=== PATIENT | female | born 1965 ===

== ENCOUNTER 2016-10-21 06:17 | Day surgery (SDC) | payer BC ==
[~2016-10-21] VITALS: Ht 160 cm; Wt 59.0 kg
[2016-10-21] VITALS (13 sets, daily range): BP systolic 104–139; BP diastolic 60–84
[~2016-10-21 06:17] MED LIST: NKM; ceFAZolin 1gm in D5W 55ml IVP ONE; celeBREX 200mg Cap **SURGERY PATIENTS ONLY ORAL ONE; oxyCONTIN 20mg tab ORAL ONE
--- NOTE | 2016-10-21 07:55 | Pre-Procedure Note/Attestation ---
Pre-Procedure Note/Attestation Complete Prior to Procedure Planned Procedure: right Procedure Narrative: knee arthroscopy acl reconstrution Indications for Procedure Pre-Operative Diagnosis: right knee acl tear Attestation I attest that I discussed the nature of the procedure; its benefits; risks and complications; and alternatives (and the risks and benefits of such alternatives ), prior to the procedure, with the patient (or the patient's legal parts sales representative). I attest that, if there was a reasonable possibility of needing a blood transfusion, the patient (or the patient's legal parts sales representative) was given the [facility] standardized written summary, pursuant to the [place] Blood Safety Act ([place] Health and Safety Code # 1645, as amended). I attest that I re-evaluated the patient just prior to the surgery and that there has been no change in the patient's H&P, except as documented below: DEWEY LYNN Oct 21, 2016 07:55
--- NOTE | 2016-10-21 07:56 | Operative Note - PDOC ---
Operative Note Operative Note Pre-op Diagnosis: right knee acl tear Procedure: see op report Post-op Diagnosis: same as pre-op plus Operative Findings: consistent w/pre-op dx studies Anesthesia: regional Specimen: none Complications: none Condition: stable Estimated Blood Loss: none Implant(s) used?: Yes DEWEY LYNN Oct 21, 2016 07:56
[2016-10-21] MEDS ORDERED: Tylenol #3 tab (300mg/30mg) ORAL PRN (08:00)
[2016-10-21] MEDS ORDERED: HYDROmorphone 1mg/ml Carpuject SUBQ PRN (08:00)
[2016-10-21] MEDS ORDERED: Norco 5mg/325mg tab ORAL PRN (08:00)
[2016-10-21] MEDS ORDERED: D5 1/2NS 1,000 ML IV SCH (08:00)
[2016-10-21] MEDS ORDERED: Morphine Sulfate PF 0 ML ONE (10:53)
[2016-10-21] MEDS ORDERED: Bupivacaine w/Epi 0.25% 30ml Vial INJ ONE (10:54)
[2016-10-21] MEDS ORDERED: Bupivacaine 0.25% Inj 30ml INJ ONE (10:54)
[2016-10-21] MEDS ORDERED: EPINEPHrine 1mg/1ml Amp ONE (10:54)
[2016-10-21] MEDS ORDERED: Bacitracin 50000 Units Vial ONE (10:54)
[2016-10-21] MEDS ORDERED: Lidocaine 1% 10mg/ml/Epi 0.005mg/ml 30ml vial INJ ONE (10:54)
[2016-10-21] MEDS ORDERED: Ketorolac 30mg Inj ONE ×2 (10:54→11:15)
[2016-10-21] MEDS ORDERED: Kenalog-40 1ml Vial ONE (10:54)
[2016-10-21] MEDS ORDERED: Metoclopramide 10mg/2ml Inj ONE (11:15)
[2016-10-21] MEDS ORDERED: LR 1000ml ONE (11:15)
[2016-10-21] MEDS ORDERED: NS Irrig 1000ml ONE (11:15)
[2016-10-21] MEDS ORDERED: Sterile Water Irrig 1000ml IRRIG ONE (11:15)
[2016-10-21] MEDS ORDERED: Midazolam 2mg/2ml Inj ONE (11:15)
[2016-10-21] MEDS ORDERED: Propofol 10mg/ml 20ml IV ONE (11:15)
[2016-10-21] MEDS ORDERED: fentaNYL 100 mcg/2 mL IV ONE (11:15)
--- NOTE | 2016-10-21 12:26 | Anethesia Preoperative Eval ---
Anesthesia Pre-op PMH/ROS General Date of Evaluation: Oct 21, 2016 Time of Evaluation: 11:30 Anesthesiologist: chato ASA Score: ASA 1 Mallampati Score Class I : Soft palate, uvula, fauces, pillars visible Class II: Soft palate, uvula, fauces visible Class III: Soft palate, base of uvula visible Class IV: Only hard plate visible Surgeon: jordon Diagnosis: ACL Tear right knee Surgical Procedure: ACL repair Anesthesia History: none Family History: no anesthesia problems Allergies: Coded Allergies: No Known Allergies (Unverified , 10/20/16) Medications: see eMAR Past Medical History Cardiovascular: Denies: CAD, HTN, OR, arrhythmia, other, valve dz Pulmonary: Denies: COPD, BRITTNEE, asthma, other Gastrointestinal/Genitourinary: Denies: CRI, ESRD, GERD, other Neurologic/Psychiatric: Denies: CVA, TIA, dementia, depression/anxiety, other Endocrine: Denies: DM, hypothyroidism, other, steroids HEENT: Denies: FALSE PASS (L), FALSE PASS (R), cataract (L), cataract (R), glaucoma, other Hematology/Immune: Denies: DVT, anemia, bleeding disorder, other Musculoskeletal/Integumentary: Denies: DDD, DJD, OA, RA, edema, other PSxH Narrative: cyst removal Anesthesia Pre-op Phys. Exam Physician Exam Last Vital Signs Date Time Temp Pulse Resp B/P Pulse Ox O2 Delivery O2 Flow Rate FiO2 10/21/16 07:15 97.5 62 20 126/77 99 Room Air Constitutional: NAD Neurologic: CN 2-12 intact Cardiovascular: RRR Respiratory: CTA Gastrointestinal: S/NT/ND Airway Exam Mallampati Classification 2 Mallampati Score: Class II MO: full ROM: full Dentures: no lower, no upper Anesthesia Pre-op A/P Labs Urine Test pt refuses pregn testing; LMP - 09/22/16, Explained to patient regarding risks of general anesthesia and , pt accepts all risks and wishes to proceed. Surgical team aware. Studies Pre-op Studies: EKG - sr Risk Assessment & Plan Plan: general / adductor canal block Status Change Before Surgery: No Pre-Antibiotics Drug: ancef Given Within 1 Hr of Incision: Yes Time Given: 11:45 DAYRON DELGADILLO CRNA Oct 21, 2016 12:25
[2016-10-21] MEDS ORDERED: Metoclopramide 10mg/2ml Inj IVP PRN (12:30)
[2016-10-21] MEDS ORDERED: Hydromorphone 0.5mg/0.5ml inj IVP PRN (12:30)
[2016-10-21] MEDS ORDERED: Meperidine 25mg/0.5ml Inj IV PRN (12:30)
--- NOTE | 2016-10-21 13:40 | Immediate Post-Op Evaluation ---
Immediate Post-Op Evalulation Immediate Post-Op Evalulation Procedure: ACL Repair Date of Evaluation: Oct 21, 2016 Time of Evaluation: 13:25 IV Fluids: 800 Blood Pressure Systolic: 137 Blood Pressure Diastolic: 100 Pulse Rate: 68 Respiratory Rate: 14 O2 Sat by Pulse Oximetry: 100 Temperature (Fahrenheit): 97.3 Nausea: No Vomiting: No Complications none Patient Status: awake, reacts, patent Hydration Status: adequate Drug: ancef Given Within 1 Hr of Incision: Yes Time Given: 11:45 DAYRON DELGADILLO CRNA Oct 21, 2016 13:40
[2016-10-21] MEDS: fentaNYL 100 mcg/2 mL IV PRN ×2 (13:46→14:15)
--- NOTE | 2016-10-21 13:55 | 48 Hour Post Anesthesia Eval ---
Post Anesthesia Evaluation Procedure: ACL Repair Date of Evaluation: Oct 21, 2016 Time of Evaluation: 13:55 Blood Pressure Systolic: 137 0: 67 Pulse Rate: 70 Respiratory Rate: 14 O2 Sat by Pulse Oximetry: 99 Airway: patent Nausea: No Vomiting: No Hydration Status: adequate Mental Status/LOC: patient returned to baseline Post-Anesthesia Complications: none Follow-up care needed: N/A DAYRON DELGADILLO CRNA Oct 21, 2016 13:55
--- NOTE | 2016-10-21 19:15 | Operative Note - Dictated ---
DATE OF OPERATION: 10/21/2016 PREOPERATIVE DIAGNOSES: 1. Right knee anterior cruciate ligament tear. 2. Hypertropic synovial tissue, right knee. 3. Small tear posterior horn along the lateral meniscus. POSTOPERATIVE DIAGNOSES: 1. Right knee anterior cruciate ligament tear. 2. Hypertropic synovial tissue, right knee. 3. Small tear posterior horn along the lateral meniscus. PROCEDURES: 1. Right knee arthroscopic anterior cruciate ligament reconstruction with tibialis anterior allograft. 2. Partial and lateral meniscectomy. 3. Synovectomy, medial and lateral patellofemoral compartment. SURGEON: Dao Templeton M.D. ANESTHESIA: General with right femoral nerve block. INDICATION FOR PROCEDURE: The patient is a pleasant female who sustained injury to her right knee. She was diagnosed with acute anterior cruciate ligament tear. She had instability and continued pain, elected to undergo right knee anterior cruciate ligament reconstruction. The risks, limitations, expectations, and complications of the procedure discussed in detailed. All questions were addressed including infection, neurovascular damage, DVT, risk of infection, continued instability, need for future surgery. DESCRIPTION OF PROCEDURE: After informed consent was obtained, the patient was brought to the operating room and placed under general anesthesia. Tourniquet was applied to the right proximal thigh. Right leg was prepped and draped in a sterile manner. Time-out was performed. Examination under anesthesia revealed a positive [place] test, positive reverse pivot shift. The tibialis anterior allograft was then prepared on the back table. The port sites were marked out and injected with 1% lidocaine with epinephrine. Inferolateral stab incision then made and trocar was introduced in the knee joint. There was mild grade 2 chondral damage in the medial facet of the patella. There was hypertrophic synovial tissue medial and lateral patellofemoral compartment. Medial working was established. Medial compartment was entered. The meniscus was probed and noted to be intact. No chondral damage. The synovectomy was performed but I visualized the anterior cruciate ligament and mediolateral compartments. The femoral insertion of the anterior cruciate ligament was completely detached 10% of the tendon. At this point, the stump of the lateral compartment was entered. Small tear of the posterior horn lateral meniscus partial lateral meniscectomy was performed using a shaver. Once that was completed, the anterior cruciate ligament stump was debrided down. Femoral tunnel was prepared along with the tibial tunnel. The tibialis anterior allograft was then placed through the tunnel and secured with toggle lock as well as a tibial interference screw. Camera was then repositioned into the knee. There was no hypertrophic synovial tissue in intercondylar notch. There was slight impingement on the notch anteriorly off the graft and therefore curette was then used to remove a little bit of the impingement. Once that was done, the instruments were removed. Portal sites were closed using 3-0 Monocryl sutures and compression dressing was applied. The patient was awoken and taken recovery room with stable vital signs. ESTIMATED BLOOD LOSS: Minimal. COMPLICATIONS: None. SPECIMENS: None. IMPLANT: 1. A tibialis anterior allograft. 2. Toggle lock suture relay system and a 10 x 35 tibial interference screw. Dao Templeton M.D. DR: Alison JOB#: [id number] CC: LARRY
== END 2016-10-21 19:55 | disposition home or self-care (01) ==
LOC: SUR 06:17
DX: S83.511A Sprain of anterior cruciate ligament of right knee, initial encounter (principal); S83.281A Other tear of lateral meniscus, current injury, right knee, initial encounter; M67.261 Synovial hypertrophy, not elsewhere classified, right lower leg; X58.XXXA Exposure to other specified factors, initial encounter; Y92.89 Other specified places as the place of occurrence of the external cause; Y99.9 Unspecified external cause status
CPT/HCPCS: 29881; 29888; 82962; C1713; J0171; J0690; J1885; J2250; J2405; J2704; J2765; J3010; J3490; J7120; 94003; 94150